=== PATIENT | male | born 1980 | race Caucasian/White ===

== ENCOUNTER → 2016-10-06 | Outpatient (CLI) | payer BC ==
--- NOTE | 2016-10-06 18:24 | CONS ---
DATE OF CONSULTATION: Consultation for sleep apnea. PRIMARY CARE PHYSICIAN: Dr. Muñiz. Referring physician Dr. Buitrago. This 36-year-old male patient was [facility] consultation of obstructive sleep apnea knowing that he has refractory hypertension and this has been difficult to control this despite using four different medications. I treated the patient on a combination of clonidine, lisinopril, hydrochlorothiazide and verapamil and his current blood pressure is 164/98. He is asymptomatic. He snores very loud; however, he denies stop breathing. He works locally at [employer]. He goes to bed around midnight, and he wakes up at 7:00 a.m. in the morning, refreshed. No major hypersomnia or sleepiness during the day. He is able to work and concentrate and he has a good attention span without having any tiredness, fatigue or hypersomnolence during the day. [place] score is only at 3. He is able to drive his car and does not fall asleep during day-to-day activities. He has gained around 20 pounds over the past few years. No sleepwalking. No sleep talking. No restlessness in the lower extremities. No grinding of the teeth. No other complaints otherwise for now. PAST MEDICAL HISTORY: Hypertension, diabetes mellitus. PAST SURGICAL HISTORY: Negative. ALLERGIES: Not known. Medication list includes: Clonidine, lisinopril, hydrochlorothiazide, verapamil and metformin. SOCIAL HISTORY: He drinks beer 2 at nighttime. No history of alcohol. No history of IV drugs. No history of smoking. FAMILY HISTORY: Negative for sleep breathing disorder. REVIEW OF SYSTEMS: Twelve-point review of systems was done and positive findings were all mentioned above in history of present illness. BP is 164/98, pulse is 80, respirations 16, temperature 98.1, saturation 97% on room air. Neck size 21 inches. [place] score is 3. BMI 46.1. Height is 78 inches. Weight is 379. GENERAL APPEARANCE: Obese, calm, comfortable, tall, male patient. HEENT: Mallampati class IV. There is no goiter or neck masses. LUNGS: Clear to auscultation. HEART: Sounds are regular rate and rhythm. Normal S1, S2. No S3, no murmurs. ABDOMEN: Soft, nontender. No organomegaly. EXTREMITIES: No edema. No cyanosis or clubbing. IMPRESSION: 1. Loud snoring with suspicion for obstructive sleep apnea. The patient is Mallampati class IV with significant crowding of the posterior pharynx. 2. Obesity. BMI is 46.1. 3. Refractory hypertension, currently on 4 different antihypertensive medications. 4. Diabetes mellitus. PLAN: 1. Weight loss. 2. Cut down on salt intake. 3. Proceed with a home sleep study to screen this patient for any significant obstructive sleep apnea that could be contributing to this patient's refractory hypertension.
== END | disposition home or self-care (01) ==
LOC: SLEEP 14:24
PROVIDERS: ATTEND Internal Medicine Critical Care Medicine
DX: R06.83 Snoring (principal); I10 Essential (primary) hypertension; E11.9 Type 2 diabetes mellitus without complications; E66.9 Obesity, unspecified; Z68.42 Body mass index [BMI] 45.0-49.9, adult; Z79.899 Other long term (current) drug therapy
CPT/HCPCS: 99211

== ENCOUNTER 2025-02-01 12:31 | Emergency (ER) | payer BC ==
--- NOTE | 2025-02-01 13:30 | ED ---
General Adult HPI - General Chief complaint: Recheck/Abnormal Lab/Rx Stated complaint: Hypertension Time Seen by Provider: 02/01/25 12:57 Source: patient, RN notes reviewed, old records reviewed Mode of arrival: ambulatory Limitations: no limitations - History of Present Illness Initial comments: 44-year-old male history of hypertension. Patient is on multiple antihypertensive medications. He states he is compliant with these medications he does follow-up with his primary and cardiology. He was at the his primary care for physical exam and was noted to be hypertensive and was sent to the emergency department. Patient had taken his morning medications at approximately 845 this morning. Patient is on clonidine 0.2 twice daily as well as hydralazine Norvasc lisinopril Coreg. Patient has no complaints no headache, no chest pain, no abdominal pain. Patient states he feels fine. - Related Data Previous Rx's Medication Instructions Recorded cloNIDine HCL 0.2 mg PO TID 30 Days #90 tablet 02/01/25 Allergies Allergy/AdvReac Type Severity Reaction Status Date / Time No Known Allergies Allergy Verified 04/08/23 09:00 Review of Systems ROS Statement: Those systems with pertinent positive or pertinent negative responses have been documented in the HPI. ROS Other: All systems not noted in ROS Statement are negative. Past Medical History Past Medical History: Diabetes Mellitus, Hyperlipidemia, Hypertension Additional Past Medical History / Comment(s): Enlarged heart History of Any Multi-Drug Resistant Organisms: None Reported Past Surgical History: No Surgical Hx Reported Past Psychological History: No Psychological Hx Reported Smoking Status: Never smoker Past Alcohol Use History: None Reported, Occasional Past Drug Use History: None Reported General Exam Limitations: no limitations General appearance: alert, in no apparent distress Head exam: Present: atraumatic, normocephalic Eye exam: Present: normal appearance, PERRL ENT exam: Present: normal exam Neck exam: Present: normal inspection. Absent: tenderness, meningismus Respiratory exam: Present: normal lung sounds bilaterally. Absent: respiratory distress, wheezes Cardiovascular Exam: Present: regular rate, normal rhythm GI/Abdominal exam: Present: soft. Absent: distended, tenderness Extremities exam: Present: normal inspection, normal capillary refill Neurological exam: Present: alert, oriented X3 Psychiatric exam: Present: normal affect, normal mood Skin exam: Present: warm, dry, intact Course Vital Signs 02/01/25 02/01/25 02/01/25 12:45 12:47 13:25 Temperature 98 F Pulse Rate 81 84 Pulse Rate [ 77 Pulse Oximetery ] Respiratory 20 18 Rate Blood Pressure 162/113 169/122 O2 Sat by Pulse 98 97 Oximetry 02/01/25 14:00 Temperature Pulse Rate 86 Pulse Rate [ Pulse Oximetery ] Respiratory 18 Rate Blood Pressure 149/99 O2 Sat by Pulse 96 Oximetry Medical Decision Making - Medical Decision Making Was pt. sent in by a medical professional or institution (, [facility], [facility] TESTER, urgent care, hospital, or [place] [facility] facility...) When possible be specific @ -[Sent in by PCP for elevated blood pressure. Did you speak to anyone other than the patient for history (EMS, parent, family, police, friend...)? What history was obtained from this source @ -No Did you review nursing and triage notes (agree or disagree)? Why? @ -I reviewed and agree with nursing and triage notes Were old charts reviewed (outside hosp., previous admission, EMS record, old EKG, old radiological studies, urgent care reports/EKG's, [place] [facility] facility records)? Report findings @ -No old charts were reviewed Differential Diagnosis: Asymptomatic hypertension, hypertensive urgency, hypertensive emergency. EKG interpreted by me (3pts min.). @ -As above X-rays interpreted by me (1pt min.). @ -None done CT interpreted by me (1pt min.). @ -None done U/S interpreted by me (1pt. min.). @ -None done What testing was considered but not performed or refused? (CT, X-rays, U/S, labs)? Why? @ -None What meds were considered but not given or refused? Why? @ -None Did you discuss the management of the patient with other professionals (professionals i.e. [facility] Reveles, [facility] TESTER, lab, RT, psych nurse, child protective services social worker, project analyst, teacher, first officer and flight instructor, shoe parts caser)? Give summary @ -No Was smoking cessation discussed for >3mins.? @ -No Was critical care preformed (if so, how long)? @ -No Were there social determinants of health that impacted care today? How? (Homelessness, low income, unemployed, alcoholism, drug addiction, eugene sportation, low edu. Level, literacy, decrease access to med. care, intermediate, rehab)? @ -No Was there de-escalation of care discussed even if they declined (Discuss DNR or withdrawal of care, Hospice)? DNR status @ -No What co-morbidities impacted this encounter? (DM, HTN, Smoking, COPD, CAD, Cancer, CVA, ARF, Chemo, Hep., AIDS, mental health diagnosis, sleep apnea, morbid obesity)? @History of hypertension, multiple oral medications. Was patient admitted / discharged? Hospital course, mention meds given and route, prescriptions, significant lab abnormalities, going to OR and other pertinent info. @ -[h 44-year-old male on multiple oral antihypertensive medication with asymptomatic hypertension. Diastolic is quite high. Patient is given an additional 0.1 mg of clonidine in the emergency department and blood pressure is significantly improved. He is currently taking 0.2 mg clonidine twice daily. This will be switched to 0.2 mg 3 times daily. Patient is instructed to follow with both his primary care and his senior it security analyst. Return parameters discussed. Undiagnosed new problem with uncertain prognosis? @ -No Drug Therapy requiring intensive monitoring for toxicity (Heparin, Nitro, Insulin, Cardizem)? @ -No Were any procedures done? @ -No Diagnosis/symptom? @ -[Hypertension Acute, or Chronic, or Acute on Chronic? @Acute on chronic Uncomplicated (without systemic symptoms) or Complicated (systemic symptoms)? @ -Default Side effects of treatment? @ -No Exacerbation, Progression, or Severe Exacerbation? @ -No Poses a threat to life or bodily function? How? (Chest pain, [place], [place], pneumonia, PE, COPD, DKA, ARF, appy, cholecystitis, CVA, Diverticulitis, Homicidal, Suicidal, threat to staff... and all critical care pts) @Low risk at this time Disposition Clinical Impression: Hypertension Disposition: HOME SELF-CARE Condition: Fair Instructions (If sedation given, give patient instructions): Hypertension (ED) Prescriptions: cloNIDine HCL 0.2 mg PO TID 30 Days #90 tablet Is patient prescribed a controlled substance at d/c from ED?: No Referrals: Dwayne Muñiz DO [Primary Care Provider] - 1-2 days Time of Disposition: 14:24
[2025-02-01 13:35] VITALS: RESP 18
[2025-02-01 14:45] VITALS: BP 146/94; PULSE 77; TEMP 97.6
== END 2025-02-01 14:45 | disposition home or self-care (01) ==
LOC: EC 12:31
DX: I10 Essential (primary) hypertension (principal); Z79.899 Other long term (current) drug therapy
CPT/HCPCS: 99283